=== PATIENT | male | born 1970 | race Caucasian/White ===

== ENCOUNTER → 2017-05-11 | Outpatient (CLI) | payer BC ==
[~2017-05-11] MED LIST: AMARYL2 MG PO; CYMBALTA30 MG PO; HYDROCODON-ACE1 EAC7 PO; IBUPROFEN 600600 M1 PO; METFORMIN HCL500 MG PO; NOHOMEMEDICATIONS; NORCO 5-325 TA1 EACH PO; TAMSULOSIN HCL0.4 M1 PO; TAMSULOSIN HCL0.4 MG PO
== END ==
LOC: ULTRA 09:46
DX: R22.2 Localized swelling, mass and lump, trunk (principal)

== ENCOUNTER → 2018-02-15 | Outpatient (CLI) | payer OTHER | LOC: CAT 10:42 | DX: Z13.6 Encounter for screening for cardiovascular disorders (principal); E78.00 Pure hypercholesterolemia, unspecified ==

== ENCOUNTER 2018-04-06 10:12 | Emergency (ER) | payer BC ==
[~2018-04-06] VITALS: Ht 172.7 cm; Wt 99.8 kg
[2018-04-06 10:41] LABS: URINE BILIRUBIN NEGATIVE (Negative); URINE BLOOD 3+ (Negative); URINE CLARITY CLEAR; URINE COLOR YELLOW; URINE GLUCOSE-RANDOM* TRACE (Negative); URINE KETONES 1+ (Negative); URINE LEUKOCYTES-REFLEX NEGATIVE (Negative); URINE NITRITE-REFLEX NEGATIVE (Negative); URINE PROTEIN (DIPSTICK) NEGATIVE (Negative); URINE SPECIFIC GRAVITY 1.025 (1.005-1.035); URINE UROBILINOGEN 0.2 E.U./dl (0.2-1.0)
[2018-04-06] MEDS ORDERED: VICTOZA0.6 MG/0.1 SUBQ (10:51)
[2018-04-06 10:52] LABS: CASTS None Seen /LPF (None Seen); CRYSTALS None Seen /LPF (None Seen); SQUAMOUS 0-3 Few /LPF (0-3); URINE RBC >20 Many /HPF (0-2); URINE WBC-REFLEX 0-5 Rare /HPF (0-5)
[2018-04-06] MEDS ORDERED: LIPITOR 20 MG T20 M1 PO (10:52)
[2018-04-06 10:54] LABS: YEAST-REFLEX Present (None Seen)
[2018-04-06 11:05] LABS: HEMOGLOBIN 15.4 gm/dL (14.0-18.0)
[2018-04-06 11:08] LABS: ABSOLUTE NEUTROPHILS 9.5 thou/uL (1.4-8.2); BASOPHILS 0.7 % (0.0-2.0); EOSINOPHILS 0.2 % (0.0-3.0); HEMATOCRIT 42.4 % (42.0-52.0); LYMPHOCYTES 10.3 % (24.0-44.0); MCH 31.8 pg (26.0-34.0); MCHC 36.3 g/dL (28.0-37.0); MCV 87.7 fL (80.0-100.0); MONOCYTES 4.5 % (1.0-8.0); PLATELET COUNT 235 thou/uL (150-400); POLYS 84.3 % (36.0-66.0); RBC 4.83 mil/uL (4.50-6.00); RDW 12.7 % (10.5-14.5); WBC 11.3 thou/uL (4.0-11.0)
[2018-04-06 11:23] LABS: CALCIUM 9.9 mg/dL (8.5-10.1); CREATININE 1.1 mg/dL (0.7-1.3); POTASSIUM 3.8 mmol/L (3.5-5.1)
[2018-04-06 11:28] LABS: ALBUMIN 4.6 g/dL (3.4-5.0); TOTAL BILIRUBIN 1.1 mg/dL (<0.1-1.0); TOTAL PROTEIN 8.4 g/dL (6.4-8.2)
[2018-04-06 12:03] LABS: ANISOCYTOSIS 1+; PLATELET ESTIMATE NORMAL
[2018-04-06] MEDS ORDERED: NORCO 5-325 TA1 EACH PO (12:24)
[2018-04-06] MEDS ORDERED: ONDANSETRON HCL4 M2 PO (12:24)
[2018-04-06] MEDS ORDERED: FLOMAX0.4 MG PO (12:24)
[2018-04-06] MEDS ORDERED: NAPROSYN500 MG PO (12:24)
[2018-04-06 12:30] VITALS: BP 117/90
== END 2018-04-06 12:45 | disposition home or self-care (01) ==
LOC: ER 10:12
PROVIDERS: Emergency Medicine
DX: R10.9 Unspecified abdominal pain (principal); R31.9 Hematuria, unspecified; F41.9 Anxiety disorder, unspecified

== ENCOUNTER 2018-04-10 12:46 | Emergency (ER) | payer BC ==
[~2018-04-10] VITALS: Ht 172.7 cm; Wt 99.3 kg
[~2018-04-10 12:46] MED LIST changes: +FLOMAX0.4 MG PO; +LIPITOR 20 MG T20 M1 PO; +NAPROSYN500 MG PO; +ONDANSETRON HCL4 M2 PO; +VICTOZA0.6 MG/0.1 SUBQ
[2018-04-10 13:35] LABS: ABSOLUTE NEUTROPHILS 5.6 thou/uL (1.4-8.2); BASOPHILS 0.7 % (0.0-2.0); EOSINOPHILS 2.3 % (0.0-3.0); HEMATOCRIT 40.6 % (42.0-52.0); HEMOGLOBIN 14.5 gm/dL (14.0-18.0); LYMPHOCYTES 21.6 % (24.0-44.0); MCH 31.8 pg (26.0-34.0); MCHC 35.7 g/dL (28.0-37.0); MCV 89.1 fL (80.0-100.0); MONOCYTES 6.8 % (1.0-8.0); PLATELET COUNT 208 thou/uL (150-400); POLYS 68.6 % (36.0-66.0); RBC 4.56 mil/uL (4.50-6.00); WBC 8.2 thou/uL (4.0-11.0)
[2018-04-10 13:45] LABS: CALCIUM 9.5 mg/dL (8.5-10.1); CREATININE 0.9 mg/dL (0.7-1.3); POTASSIUM 4.2 mmol/L (3.5-5.1)
[2018-04-10 13:50] LABS: URINE BILIRUBIN NEGATIVE (Negative); URINE BLOOD NEGATIVE (Negative); URINE CLARITY CLEAR; URINE COLOR YELLOW; URINE GLUCOSE-RANDOM* 1+ (Negative); URINE KETONES NEGATIVE (Negative); URINE LEUKOCYTES-REFLEX NEGATIVE (Negative); URINE NITRITE-REFLEX NEGATIVE (Negative); URINE PROTEIN (DIPSTICK) NEGATIVE (Negative); URINE UROBILINOGEN 0.2 E.U./dl (0.2-1.0)
[2018-04-10 13:51] LABS: TOTAL BILIRUBIN 0.6 mg/dL (<0.1-1.0); TOTAL PROTEIN 7.6 g/dL (6.4-8.2)
[2018-04-10] MEDS ORDERED: NORCO 10-325 T1 EACH PO (15:43)
[2018-04-10] MEDS ORDERED: BACTRIM DS TAB1 EACH PO (15:44)
[2018-04-10 15:55] VITALS: BP 125/74
== END 2018-04-10 16:09 | disposition home or self-care (01) ==
LOC: ER 12:46
PROVIDERS: Physician Assistant
DX: N20.0 Calculus of kidney (principal); N39.0 Urinary tract infection, site not specified; R11.2 Nausea with vomiting, unspecified; F41.9 Anxiety disorder, unspecified; Z87.442 Personal history of urinary calculi

== ENCOUNTER 2018-08-25 10:16 | Emergency (ER) | payer BC ==
[~2018-08-25] VITALS: Ht 172.7 cm; Wt 103.4 kg
[~2018-08-25 10:16] MED LIST changes: +BACTRIM DS TAB1 EACH PO; +NORCO 10-325 T1 EACH PO
[2018-08-25] MEDS ORDERED: NORCO 5-325 TA1 EAC1 PO (11:52)
[2018-08-25 13:26] VITALS: BP 116/80
== END 2018-08-25 12:18 | disposition home or self-care (01) ==
LOC: ER 10:16
DX: S30.0XXA Contusion of lower back and pelvis, initial encounter (principal); S80.12XA Contusion of left lower leg, initial encounter; F41.9 Anxiety disorder, unspecified; W01.10XA Fall on same level from slipping, tripping and stumbling with subsequent striking against unspecified object, initial encounter; Y93.89 Activity, other specified; Y92.89 Other specified places as the place of occurrence of the external cause; Y99.8 Other external cause status

== ENCOUNTER 2018-09-11 20:49 | Emergency (ER) | payer BC ==
[~2018-09-11] VITALS: Ht 172.7 cm; Wt 99.8 kg
[~2018-09-11 20:49] MED LIST changes: +NORCO 5-325 TA1 EAC1 PO
[2018-09-11 21:30] LABS: ABSOLUTE NEUTROPHILS 6.6 thou/uL (1.4-8.2); BASOPHILS 1.2 % (0.0-2.0); EOSINOPHILS 1.4 % (0.0-3.0); HEMATOCRIT 39.6 % (42.0-52.0); HEMOGLOBIN 13.8 gm/dL (14.0-18.0); LYMPHOCYTES 27.5 % (24.0-44.0); MCH 31.2 pg (26.0-34.0); MCHC 34.8 g/dL (28.0-37.0); MCV 89.8 fL (80.0-100.0); MONOCYTES 8.8 % (1.0-8.0); PLATELET COUNT 280 thou/uL (150-400); POLYS 61.1 % (36.0-66.0); RBC 4.41 mil/uL (4.50-6.00); RDW 12.7 % (10.5-14.5); WBC 10.8 thou/uL (4.0-11.0)
[2018-09-11] MEDS ORDERED: LISINOPRIL20 MG PO (21:37)
[2018-09-11 21:38] LABS: APTT 23.7 Seconds (24.5-32.8); PROTIME 10.5 Seconds (9.3-11.4)
[2018-09-11 21:48] LABS: CALCIUM 9.2 mg/dL (8.5-10.1); CREATININE 1.2 mg/dL (0.7-1.3); TOTAL BILIRUBIN 0.7 mg/dL (<0.1-1.0); TOTAL PROTEIN 7.5 g/dL (6.4-8.2)
[2018-09-11 22:31] LABS: URINE BILIRUBIN NEGATIVE (Negative); URINE BLOOD NEGATIVE (Negative); URINE CLARITY CLEAR; URINE COLOR YELLOW; URINE GLUCOSE-RANDOM* 2+ (Negative); URINE KETONES TRACE (Negative); URINE LEUKOCYTES-REFLEX NEGATIVE (Negative); URINE NITRITE-REFLEX NEGATIVE (Negative); URINE PROTEIN (DIPSTICK) NEGATIVE (Negative); URINE SPECIFIC GRAVITY >= 1.030 (1.005-1.035); URINE UROBILINOGEN 0.2 E.U./dl (0.2-1.0)
[2018-09-11] MEDS ORDERED: NORCO 5-325 TA1 EAC1 PO (23:54)
[2018-09-12 00:01] LABS: HEMATOCRIT 34.9 % (42.0-52.0); HEMOGLOBIN 12.3 gm/dL (14.0-18.0); MCH 31.5 pg (26.0-34.0); MCHC 35.1 g/dL (28.0-37.0); MCV 89.7 fL (80.0-100.0); RBC 3.88 mil/uL (4.50-6.00); RDW 12.5 % (10.5-14.5); WBC 10.2 thou/uL (4.0-11.0)
[2018-09-12 00:07] VITALS: BP 113/72
== END 2018-09-12 00:10 | disposition home or self-care (01) ==
LOC: ER 20:49
PROVIDERS: Emergency Medicine; Nurse Practitioner Family
DX: S30.1XXA Contusion of abdominal wall, initial encounter (principal); F41.9 Anxiety disorder, unspecified; Z87.442 Personal history of urinary calculi; V91.83XA Other injury due to other accident to other powered watercraft, initial encounter; Y92.89 Other specified places as the place of occurrence of the external cause; Y93.89 Activity, other specified; Y99.8 Other external cause status

== ENCOUNTER → 2019-08-14 | Outpatient (CLI) | payer BC ==
[~2019-08-14] MED LIST changes: +LISINOPRIL20 MG PO
== END ==
LOC: LAB 13:35
PROVIDERS: ATTEND Nurse Practitioner
DX: U07.1 COVID-19 (principal)

== ENCOUNTER → 2020-08-16 | Outpatient (CLI) | payer OTHER | LOC: CAT 08:44 | PROVIDERS: ATTEND Family Medicine | DX: Z13.6 Encounter for screening for cardiovascular disorders (principal) ==